=== PATIENT | female | born 1975 | race Caucasian/White ===

== ENCOUNTER → 2017-07-13 | Outpatient (CLI) | payer OTHER ==
[2016-04-06 11:12] VITALS: BP 134/67
[~2017-07-13] MED LIST: ACET500C PO; BENZ0.5T PO; BUPR75TA5 PO; CLON0.5T PO; FLUT16SP2 NS; LAMO200T2 PO; MECL25TA3 PO; METO50TA29 PO; MONT10TA6 PO; OLAN15TA3 PO; OLAN15TA9 PO; OLAN2.5T3 PO; PRAZ2CAP2 PO; PRAZ5CAP2 PO; SERT20OR PO; TEMA15CA6 PO; TOPI100T42 PO; TOPI100T8 PO; TRAM50TA PO; TRIA0.25 PO; VORT20TA PO; [UNRECOGNIZED DRUG - OTHER] IM
[2017-07-13 13:09] LABS: BASO # 0.1 x10^3/uL (0.0-0.2); BASO % 1 % (0-3); EOS # 0.3 x10^3/uL (0.0-0.7); EOS % 3 % (0-3); HEMATOCRIT 38.8 % (36.0-47.0); HEMOGLOBIN 12.7 g/dL (12.0-15.5); LYMPH # 3.8 x10^3/uL (1.0-4.8); LYMPH % 43 % (24-48); MEAN CORPUSCULAR HEMOGLOBIN 26 pg (25-35); MEAN CORPUSCULAR HGB CONC 33 g/dL (31-37); MEAN CORPUSCULAR VOLUME 80 fL (79-100); MONO # 0.8 x10^3/uL (0.0-1.1); MONO % 9 % (0-9); NEUT # 3.9 x10^3uL (1.8-7.7); NEUT % 44 % (31-73); PLATELET COUNT 298 x10^3/uL (140-400); RED BLOOD COUNT 4.84 x10^6/uL (3.50-5.40); RED CELL DISTRIBUTION WIDTH 15.8 % (11.5-14.5); WHITE BLOOD COUNT 8.8 x10^3/uL (4.0-11.0)
[2017-07-13 13:43] LABS: CREATININE 0.9 mg/dL (0.6-1.0); POTASSIUM 3.7 mmol/L (3.5-5.1)
== END | disposition home or self-care (01) ==
LOC: LAB 11:54
PROVIDERS: ATTEND Psychiatry & Neurology Neurology
DX: G93.2 Benign intracranial hypertension (principal)
CPT/HCPCS: 36415; 80051; 82565; 84450; 84460; 84520; 85025

== ENCOUNTER → 2017-08-18 | Outpatient (CLI) | payer OTHER ==
[2016-04-06 11:12] VITALS: BP 134/67
[~2017-08-18] MED LIST changes: +SERT100T PO; -SERT20OR PO
[2017-08-18 15:02] LABS: BASO # 0.1 x10^3/uL (0.0-0.2); BASO % 1 % (0-3); EOS # 0.3 x10^3/uL (0.0-0.7); EOS % 4 % (0-3); HEMATOCRIT 38.9 % (36.0-47.0); HEMOGLOBIN 12.6 g/dL (12.0-15.5); LYMPH % 37 % (24-48); MEAN CORPUSCULAR HEMOGLOBIN 26 pg (25-35); MEAN CORPUSCULAR HGB CONC 32 g/dL (31-37); MEAN CORPUSCULAR VOLUME 81 fL (79-100); MONO # 0.6 x10^3/uL (0.0-1.1); MONO % 7 % (0-9); NEUT % 51 % (31-73); PLATELET COUNT 288 x10^3/uL (140-400); WHITE BLOOD COUNT 7.9 x10^3/uL (4.0-11.0)
[2017-08-18 15:15] LABS: ALBUMIN 3.5 g/dL (3.4-5.0); CALCIUM 8.9 mg/dL (8.5-10.1); CREATININE 0.9 mg/dL (0.6-1.0); POTASSIUM 3.7 mmol/L (3.5-5.1); TOTAL BILIRUBIN 0.3 mg/dL (0.2-1.0); TOTAL PROTEIN 7.1 g/dL (6.4-8.2)
[2017-08-19 13:38] LABS: FREE T4 0.79 ng/dL (0.76-1.46)
[2017-08-19 13:39] LABS: THYROID STIM HORMONE (TSH) 1.887 uIU/mL (0.358-3.740)
== END | disposition home or self-care (01) ==
LOC: LAB 13:14
PROVIDERS: ATTEND Psychiatry & Neurology Child & Adolescent Psychiatry
DX: Z79.899 Other long term (current) drug therapy (principal)
CPT/HCPCS: 36415; 80053; 80061; 82306; 84439; 84443; 84480; 85025

== ENCOUNTER → 2017-10-26 | Outpatient (CLI) | payer OTHER ==
[2016-04-06 11:12] VITALS: BP 134/67
[~2017-10-26] MED LIST changes: -BENZ0.5T PO; +BENZ0.5T32 PO; +IOHEXOL 300 MG/ML 75 ML VIAL. IV ONE
--- NOTE | 2017-10-26 14:23 | RAD ---
Examination: CT chest with IV contrast HISTORY: History of cough for 6 weeks COMPARISON: None available TECHNIQUE: Axial CT images of the chest were performed with IV contrast. Coronal and sagittal reformats are performed. Exposure: One or more of the following individualized dose reduction techniques were utilized for this examination: 1. Automated exposure control 2. Adjustment of the mA and/or kV according to patient size 3. Use of iterative reconstruction technique FINDINGS: The visualized thyroid gland demonstrates a tiny 4 mm hypodensity in the right lobe of the thyroid gland. The central airways are patent. The heart size grossly appears unremarkable. No radiologically significant mediastinal lymphadenopathy identified. The lungs are clear. There is diffuse decreased attenuation noted throughout the liver likely hepatic steatosis. The visualized adrenals grossly appears unremarkable. Without evidence of lytic bony destructive lesion. IMPRESSION: 1. The lungs are clear. 2. Hepatic steatosis. 3. 4 mm thyroid nodule. Electronically signed by: Santosh Watters MD (10/26/2017 2:19 PM) [id number]
== END | disposition home or self-care (01) ==
LOC: CT 11:45
PROVIDERS: ATTEND Physician Assistant
DX: K76.0 Fatty (change of) liver, not elsewhere classified (principal); E04.1 Nontoxic single thyroid nodule; I10 Essential (primary) hypertension; Z87.891 Personal history of nicotine dependence
CPT/HCPCS: 71260; Q9967

== ENCOUNTER 2017-11-01 13:58 | Observation (INO) | payer OTHER ==
[~2017-11-01] VITALS: Ht 157.5 cm; Wt 96.2 kg
[~2017-11-01 13:58] MED LIST changes: -IOHEXOL 300 MG/ML 75 ML VIAL. IV ONE
[2017-11-01 14:14] VITALS: BP 126/75
[2017-11-01 15:10] LABS: ALBUMIN 3.6 g/dL (3.4-5.0); CALCIUM 8.5 mg/dL (8.5-10.1); CREATININE 0.9 mg/dL (0.6-1.0); POTASSIUM 3.8 mmol/L (3.5-5.1); TOTAL BILIRUBIN 0.4 mg/dL (0.2-1.0); TOTAL PROTEIN 7.3 g/dL (6.4-8.2)
[2017-11-01 15:22] LABS: BASO # 0.1 x10^3/uL (0.0-0.2); BASO % 1 % (0-3); EOS # 0.2 x10^3/uL (0.0-0.7); EOS % 2 % (0-3); HEMATOCRIT 36.8 % (36.0-47.0); LYMPH # 2.7 x10^3/uL (1.0-4.8); LYMPH % 30 % (24-48); MEAN CORPUSCULAR HEMOGLOBIN 26 pg (25-35); MEAN CORPUSCULAR HGB CONC 33 g/dL (31-37); MEAN CORPUSCULAR VOLUME 80 fL (79-100); MONO # 0.6 x10^3/uL (0.0-1.1); MONO % 6 % (0-9); NEUT # 5.6 x10^3uL (1.8-7.7); NEUT % 61 % (31-73); PLATELET COUNT 303 x10^3/uL (140-400); RED BLOOD COUNT 4.62 x10^6/uL (3.50-5.40); WHITE BLOOD COUNT 9.2 x10^3/uL (4.0-11.0)
[2017-11-01] MEDS ORDERED: ALBU8.5H8 INH (16:40)
[2017-11-01] MEDS ORDERED: ATOR40TA59 PO (16:40)
[2017-11-01] MEDS ORDERED: BREX1TAB PO (16:40)
[2017-11-01] MEDS ORDERED: IPRA3AMP NEB (16:40)
[2017-11-01] MEDS ORDERED: IBUP-577 PO (16:40)
[2017-11-01] MEDS ORDERED: TOPI100T8 PO (16:40)
[2017-11-01] MEDS ORDERED: FLUT1DIS3 INH (16:40)
--- NOTE | 2017-11-01 16:47 | PDOC2 ---
CONSULT Date of Admission DATE: 11/01/17 TIME: 16:44 Reason for Consult: left bundle branch block History of Present Illness Ms Renee is a 42 year old female who presented to her primary care providers office for follow up on a CT chest done for chronic cough. She reports dry, non productive cough for about 6 months. She reports dyspnea on exertion that has been progressive over that time. she denies congestive symptoms such as orthopnea or PND. She was noted to have a left bundle branch block on EKG that was new so was sent to hospital for evaluation. She reports chest discomfort that she describes as burning which occurs with exertion such as walking up a flight of steps and resolves with rest. She reports occasional palpitations but denies lightheadedness, or syncope. She reports some mild edema and has not been compliant with her Diamox due to incontinence issues. Past Medical History bipolar disorder, depression,SI/SA, pseudotumor cerebri, asthma, seasonal / environmental allergies Past Surgical History hiatal hernia repair as a child Family History CAD in Mom and Dad Social History quit smoking 4 years ago Current Medications Active Scripts Active Reported Topiramate 100 Mg Tablet 2 Tab PO HS Advair 250-50 Diskus (Fluticasone/Salmeterol) 1 Each Disk.w.dev 1 Puff INH BID Duoneb 0.5-3(2.5) Mg/3 Ml (Albuterol/Ipratropium) 3 Ml Ampul.neb 3 Ml NEB Q6HRS Proair Hfa Inhaler (Albuterol Sulfate) 8.5 Gm Hfa.aer.ad 1 Puff INH PRN PRN Atorvastatin Calcium 40 Mg Tablet 40 Mg PO HS Ibu (Ibuprofen) 800 Mg Tablet 800 Mg PO BID Rexulti (Brexpiprazole) 1 Mg Tablet 1 Mg PO DAILY Topiramate 100 Mg Tablet 1 Tab PO DAILY Trintellix (Vortioxetine Hydrobromide) 20 Mg Tablet 20 Mg PO DAILY Lamotrigine 200 Mg Tablet 1 Tab PO DAILY Metoprolol Succinate ( Xl ) (Metoprolol Succinate) 50 Mg Tab.er.24h 1 Tab PO DAILY Halcion (Triazolam) 0.25 Mg Tablet 1 Tab PO QHS PRN Flonase (Fluticasone Propionate) 16 Gm [place].susp 1 [place] NS BID Singulair Tablet (Montelukast Sodium) 10 Mg Tablet 10 Mg PO HS Allergies: Coded Allergies: allopurinol (Verified Allergy, Mild, 04/17/14) amoxicillin (Verified Allergy, Mild, 04/17/14) clavulanic acid (Verified Allergy, Mild, 04/17/14) Review of System as per HPI or negative General: Alert, Oriented X3, Cooperative, No acute distress HEENT: Atraumatic, EOMI, Mucous membr. moist/pink Lungs: Other (mildly decreased right base otherwise clear) Heart: Regular rate, Normal S1, Normal S2, Other (no murmurs, no gallops, clicks or rubs) Abdomen: Normal bowel sounds, Soft, No tenderness Extremities: No cyanosis, Normal pulses, Other (trace edema) Neuro: Normal speech, Strength at 5/5 X4 ext Psych/Mental Status: Mental status NL, Mood NL VITALS Vital Signs Date Time Temp Pulse Resp B/P (MAP) Pulse Ox O2 Delivery O2 Flow Rate FiO2 11/01/17 14:14 98.0 95 18 126/75 (92) 96 Room Air Labs Laboratory Tests Test 11/01/17 14:40 White Blood Count 9.2 x10^3/uL (4.0-11.0) Red Blood Count 4.62 x10^6/uL (3.50-5.40) Hemoglobin 12.0 g/dL (12.0-15.5) Hematocrit 36.8 % (36.0-47.0) Mean Corpuscular Volume 80 fL (79-100) Mean Corpuscular Hemoglobin 26 pg (25-35) Mean Corpuscular Hemoglobin Concent 33 g/dL (31-37) Red Cell Distribution Width 15.0 % (11.5-14.5) Platelet Count 303 x10^3/uL (140-400) Neutrophils (%) (Auto) 61 % (31-73) Lymphocytes (%) (Auto) 30 % (24-48) Monocytes (%) (Auto) 6 % (0-9) Eosinophils (%) (Auto) 2 % (0-3) Basophils (%) (Auto) 1 % (0-3) Neutrophils # (Auto) 5.6 x10^3uL (1.8-7.7) Lymphocytes # (Auto) 2.7 x10^3/uL (1.0-4.8) Monocytes # (Auto) 0.6 x10^3/uL (0.0-1.1) Eosinophils # (Auto) 0.2 x10^3/uL (0.0-0.7) Basophils # (Auto) 0.1 x10^3/uL (0.0-0.2) Sodium Level 140 mmol/L (136-145) Potassium Level 3.8 mmol/L (3.5-5.1) Chloride Level 107 mmol/L (98-107) Carbon Dioxide Level 23 mmol/L (21-32) Anion Gap 10 (6-14) Blood Urea Nitrogen 11 mg/dL (7-20) Creatinine 0.9 mg/dL (0.6-1.0) Estimated GFR (Cockcroft-Gault) 69.0 BUN/Creatinine Ratio 12 (6-20) Glucose Level 109 mg/dL (70-99) Calcium Level 8.5 mg/dL (8.5-10.1) Total Bilirubin 0.4 mg/dL (0.2-1.0) Aspartate Amino Transf (AST/SGOT) 30 U/L (15-37) Alanine Aminotransferase (ALT/SGPT) 45 U/L (14-59) Alkaline Phosphatase 127 U/L (46-116) Troponin I Quantitative < 0.017 ng/mL (0-0.055) Total Protein 7.3 g/dL (6.4-8.2) Albumin 3.6 g/dL (3.4-5.0) Albumin/Globulin Ratio 1.0 (1.0-1.7) Images CXR - pending EKG - pending Assessment/Plan 1. Chest pain - BBB on EKG which is new. Initial CE are negative. Will check serial enzymes and plan for echo and MPI tomorrow if they remain negative. 2. Dyspnea on exertion - CXR pending 3. chronic dry cough - await cxr. consider addition of PPI. DEMAR AMANDA COARSE WIRE DRAWER Nov 01, 2017 16:47
[2017-11-01 16:48] VITALS: BP 112/67
--- NOTE | 2017-11-01 16:49 | NUR ---
The patient, ORALIA HARTMAN, 42 y/o, F admitted by DWIGHT CARTER MD, was given written information regarding hospital policies, unit procedures and contact persons. Patient admitted to room [address] Carter's office and arrived at approx. 1405 via ambulation. Patient's parents and children with her on admission. Valuables were checked and left in room with patient. Vital signs assessed and 20g IV placed to right AC and labs drawn. Patient assessed and oriented to the room. [facility] notified of consult and return call received from ESTEE Denny. Denisha is here to see patient at this time.
--- NOTE | 2017-11-01 16:53 | RAD ---
Chest radiograph 11/01/2017 4:48 PM INDICATION: Chest pain COMPARISON: Chest July 21, 2006 TECHNIQUE: Frontal and lateral views of the chest are provided. FINDINGS: The cardiomediastinal silhouette is within normal limits. There are no pleural effusions. There is no pulmonary vascular congestion. There is no pneumothorax. The lungs are clear. No significant osseous abnormality is identified. IMPRESSION: No acute cardiopulmonary process. Electronically signed by: Nathalie Briones MD (11/01/2017 4:49 PM) [facility]
--- NOTE | 2017-11-01 17:09 | EKG ---
[address] [address] Test Date: 2017-11-01 Test Time: 17:00:37 Pat Name: ORALIA HARTMAN Department: Room: 120 A Gender: F Oxygen Equipment Preparer: SARATH : 1975 Requested By: DWIGHT CARTER Order Number: [id number] Reading MD: Measurements Intervals Gap Rate: 96 P: 56 MN: 162 QRS: -4 QRSD: 148 T: 97 QT: 378 QTc: 485 Interpretive Statements SINUS RHYTHM LEFTWARD AXIS LOW LIMB LEAD VOLTAGE NON SPECIFIC INTRAVENTRICULAR BLOCK QRS(T) CONTOUR ABNORMALITY CONSIDER ANTEROSEPTAL MYOCARDIAL DAMAGE ABNORMAL ECG RI6.01 No previous ECG available for comparison
[2017-11-01] MEDS ORDERED: ALBUTEROL SULFATE 8GM INHALER. INH PRN (18:15)
[2017-11-01 18:27] LABS: BILIRUBIN,URINE NEG (NEG); CLARITY,URINE CLEAR; COLOR,URINE STRAW; GLUCOSE,URINE NEG (NEG); NITRITE,URINE NEG (NEG); RBC,URINE 0 /HPF (0-2); UROBILINOGEN,URINE 0.2 mg/dL (0.2 mg/dL)
[2017-11-01 18:28] LABS: BACTERIA,URINE 0 /HPF (0-FEW); SQUAMOUS EPITHELIAL CELL,UR OCC /LPF; WBC,URINE OCC /HPF (0-4)
[2017-11-01 19:18] VITALS: BP 109/78
[2017-11-01] MEDS ORDERED: NON FORMULARY ITEM (Fluticasone/Salmeterol (Advair 250-50 Diskus) 1 PUFF) INH SCH (21:00)
[2017-11-01] MEDS: ATORVASTATIN CALCIUM 20 MG TABLET PO SCH (21:11)
[2017-11-01] MEDS: BUDESONIDE 0.5 MG/2 ML NEBU NEB SCH ×2 (21:11→21:35)
[2017-11-01] MEDS: ZOLPIDEM 5 MG TABLET. PO PRN ×2 (21:12→23:38)
[2017-11-01] MEDS: MONTELUKAST 10 MG TABLET. PO SCH (21:12)
[2017-11-01] MEDS: IBUPROFEN 800 MG TABLET. PO SCH (21:12)
[2017-11-01] MEDS: TOPIRAMATE 100 MG TABLET. PO SCH (21:12)
[2017-11-01] MEDS: IPRATRPIUM/ALBUTEROL 0.5/2.5MG 3 ML NEBU. NEB SCH (21:35)
[2017-11-01 23:21] VITALS: BP 122/80
--- NOTE | 2017-11-02 02:00 | NUR ---
Report given to YAMILE Jay.
[2017-11-02] MEDS: IPRATRPIUM/ALBUTEROL 0.5/2.5MG 3 ML NEBU. NEB SCH ×4 (05:33→20:37)
[2017-11-02 05:58] VITALS: BP 135/72
[2017-11-02] MEDS ORDERED: TRIAZOLAM 0.25 MG PO PRN (08:30)
[2017-11-02] MEDS ORDERED: TOPIRAMATE PO SCH (09:00)
[2017-11-02] MEDS: FLUTICASONE 50MCG/NASAL SPRAY 16GM BOTTLE. NS SCH ×2 (09:20→21:05)
[2017-11-02] MEDS: IBUPROFEN 800 MG TABLET. PO SCH (09:22)
[2017-11-02] MEDS: lamoTRIgine 100 MG TABLET. PO SCH (09:22)
[2017-11-02] MEDS: TOPIRAMATE 100 MG TABLET. PO SCH ×2 (09:25→21:06)
[2017-11-02] MEDS: BUDESONIDE 0.5 MG/2 ML NEBU NEB SCH (09:42)
[2017-11-02 11:00] VITALS: BP 120/80
[2017-11-02] MEDS ORDERED: REGADENOSON 0.4 MG/5 ML DISP.SYRIN. IV ONE (11:15)
[2017-11-02] MEDS: METOPROLOL SUCC 24HR ER 50 MG TAB.ER.24H. PO SCH (13:21)
[2017-11-02 15:00] VITALS: BP 109/71
--- NOTE | 2017-11-02 15:03 | RAD ---
MR#: [id number] Date of Study: 11/02/2017 Ordering Physician: DEMAR AMANDA, Referring Physician: ABI RASHID Tech: RT Charlee Flores) (N) APPROVED REPORT Test Type: Pharmacological Stress Nurse/Tech: RT Charlee Flores) (N) Test Indications: chest pain and dyspnea on exertion Cardiac History: family history mon and dad CAD Medications: see ehr Medical History: see ehr Resting Heart Rate: 84 bpm Resting Blood Pressure: 137/65mmHg Pretest Chest Pain: None Nurse/Tech Notes Consent: The procedure was explained to the patient in lay terms. Informed consent was witnessed. Samuel eout was entered into Powered. History and Stress Test performed by RT Charlee Flores) (N) Pharm. Details Pharmacologic stress testing was performed using 0.4mg per 5ml of regadenoson given intravenously ove r 7-10 seconds. Stress Symptoms short of breath and chest discomfort POST EXERCISE Reason for Termination: Infusion complete Max HR: 109 bpm Max Blood Pressure: 130/55mmHg INTERPRETATION Stress EKG Conclusion: Baseline EKG showed sinus rhythm with left bundle branch block. Nondiagnostic changes at peak stress. No arrhythmias. Imaging Protocol IMAGE PROTOCOL: Stress Tc-99m/rest Tc-99m 2 days Rest: Stress: Viability: Radiopharm.Tc99m Sestamibi [id number] Duration 15min. Img Date 11/02/2017 Inj-Img [id number]. Stress Admin Site: IV - Right AntecubitalAdministrator: RT Charlee Flores)(N) STRESS DATA End Diast. Vol.107.0mlAv. Heart Rate91.0bpm LVEDV index BSA2.0mlCardiac Output0.1L/min End Syst. Vol.31.0mlCO Index BSA6.9L/min LVESV index BSA1.0mlMyocardial Exfa190.0g Eject. Usfdkfes54.0% Stress Rates Pk. Fill Rate3.47EDV/secLVtime Pk. Fill 160.01msec Pk. Empty Rate4.20ESV/secLVtime Pk. Zyftv332.58msec 1/3 Pk. Fill1.72EDV/sec Stress Scores Regional WT0.00Summed WT3.00 Regional WM0.00Summed WM1.00 LV Perfusion Stress scintigraphic images did not show any significant perfusion defects. Wall Motion Normal left ventricular systolic function with ejection fraction calculated at 71%. LV Perf. Quant 17 Seg. SSS1.00 Stress Defect Extent (% LAD)0.00Rest Defect Extent (% LAD)Rev. Defect Extent (% LAD)0.00 Stress Defect Extent (% LCX) 0.00Rest Defect Extent (% LCX)Rev. Defect Extent (% LCX)0.00 Stress Defect Extent (% RCA)0.00Rest Defect Extent (% RCA)Rev. Defect Extent (% RCA)0.00 Stress Defect Extent (% COLBY)0.00Rest Defect Extent (% COLBY)Rev. Defect Extent (% COLBY)0.00 Conclusion 1. Regadenoson cardioisotope stress test did not show any evidence of ischemia or infarct. 2. Normal left ventricular systolic function with ejection fraction calculated at 71%. 3. Low risk for cardiac events. Signed by : Emmanuel Matthews, Electronically Approved : 11/02/2017 15:02:45
[2017-11-02 20:31] VITALS: BP 102/65
[2017-11-02] MEDS: MONTELUKAST 10 MG TABLET. PO SCH (21:05)
[2017-11-02] MEDS: ATORVASTATIN CALCIUM 20 MG TABLET PO SCH (21:05)
--- NOTE | 2017-11-02 21:49 | PN ---
DATE: 11/02/2017 SUBJECTIVE: A 42-year-old female in with chest pain. The patient was seen by Cardiology. She had a nuclear medicine scan, results are still pending. At this time, she did have crushing substernal chest pain, on minimal exertion, we are awaiting results there. Otherwise, the patient notes she still has some difficulty in breathing and did have some wheezing noted. She is on breathing treatments for that purpose there. PHYSICAL EXAMINATION: VITAL SIGNS: Otherwise, the patient's blood pressure 110/70, respiratory rate 20, pulse 98, afebrile, good oxygen saturation. GENERAL: The patient alert and oriented x 3. Speech fluent. . NEUROLOGIC: Cranial nerves 2 through 12 grossly and neurologically intact. LUNGS: Did show some expiratory wheezes. IMPRESSION: Acute asthma, acute chest pain. PLAN: The patient will be admitted for further evaluation, continue workup on her asthma as well as her chest pain, and continue breathing treatment. She also has bronchospasm that will be handled as well. DWIGHT CARTER MD DR: NICOLE/sebas JOB#: [id number] / [id number]
[2017-11-02 23:15] VITALS: BP 117/79
[2017-11-03] MEDS: IPRATRPIUM/ALBUTEROL 0.5/2.5MG 3 ML NEBU. NEB SCH ×2 (05:34→11:36)
[2017-11-03] MEDS: FLUTICASONE 50MCG/NASAL SPRAY 16GM BOTTLE. NS SCH (08:53)
[2017-11-03 08:54] VITALS: BP 117/79
[2017-11-03] MEDS: lamoTRIgine 100 MG TABLET. PO SCH (08:54)
[2017-11-03] MEDS: TOPIRAMATE 100 MG TABLET. PO SCH (08:54)
[2017-11-03] MEDS: METOPROLOL SUCC 24HR ER 50 MG TAB.ER.24H. PO SCH (08:54)
--- NOTE | 2017-11-03 09:36 | PDOC ---
PROGRESS NOTES Assessment 1. Chest pain - VT ruled out. MPI normal. Echo WNL. Continue primary prevention and risk factor reduction. 2. Dyspnea on exertion - no heart failure. Normal LVEF by MPI. Echo pending. Likely secondary to exacerbation of asthma. As per PCP, consider PFTs. 3. chronic dry cough - consider addition of PPI. Mgmt per PCP 4. HLD - lipid panel pending, continue statin and adjust as indicated as outpatient. Subjective Doing well today, no further complaints of cp. breathing improved. no palpitations or lightheadedness. Objective Vital Signs Date Time Temp Pulse Resp B/P (MAP) Pulse Ox O2 Delivery O2 Flow Rate FiO2 11/03/17 08:54 90 117/79 11/03/17 05:35 98 Room Air 11/02/17 23:15 98.2 20 Intake and Output 11/03/17 07:00 Intake Total 400 ml Balance 400 ml Intake Oral 400 ml # Voids 5 Abdomen: Normal bowel sounds, Soft, No tenderness Heart: Regular rate, Normal S1, Normal S2 Extremities: No cyanosis, No edema, Normal pulses General: Alert, Oriented X3, Cooperative, moderate distress HEENT: Atraumatic, EOMI Lungs: Other (decreased bases, no crackles or wheezing) Neuro: Normal speech, Strength at 5/5 X4 ext Psych/Mental Status: Mental status NL, Mood NL Review of Relevant I have reviewed the following items margie (where applicable) has been applied. Labs Laboratory Tests Test 11/01/17 14:40 11/01/17 16:00 11/01/17 21:15 11/02/17 02:36 White Blood Count 9.2 x10^3/uL (4.0-11.0) Red Blood Count 4.62 x10^6/uL (3.50-5.40) Hemoglobin 12.0 g/dL (12.0-15.5) Hematocrit 36.8 % (36.0-47.0) Mean Corpuscular Volume 80 fL (79-100) Mean Corpuscular Hemoglobin 26 pg (25-35) Mean Corpuscular Hemoglobin Concent 33 g/dL (31-37) Red Cell Distribution Width 15.0 % (11.5-14.5) Platelet Count 303 x10^3/uL (140-400) Neutrophils (%) (Auto) 61 % (31-73) Lymphocytes (%) (Auto) 30 % (24-48) Monocytes (%) (Auto) 6 % (0-9) Eosinophils (%) (Auto) 2 % (0-3) Basophils (%) (Auto) 1 % (0-3) Neutrophils # (Auto) 5.6 x10^3uL (1.8-7.7) Lymphocytes # (Auto) 2.7 x10^3/uL (1.0-4.8) Monocytes # (Auto) 0.6 x10^3/uL (0.0-1.1) Eosinophils # (Auto) 0.2 x10^3/uL (0.0-0.7) Basophils # (Auto) 0.1 x10^3/uL (0.0-0.2) D-Dimer (Veda) < 0.19 mg/L (0.00-0.50) Sodium Level 140 mmol/L (136-145) Potassium Level 3.8 mmol/L (3.5-5.1) Chloride Level 107 mmol/L (98-107) Carbon Dioxide Level 23 mmol/L (21-32) Anion Gap 10 (6-14) Blood Urea Nitrogen 11 mg/dL (7-20) Creatinine 0.9 mg/dL (0.6-1.0) Estimated GFR (Cockcroft-Gault) 69.0 BUN/Creatinine Ratio 12 (6-20) Glucose Level 109 mg/dL (70-99) Calcium Level 8.5 mg/dL (8.5-10.1) Total Bilirubin 0.4 mg/dL (0.2-1.0) Aspartate Amino Transf (AST/SGOT) 30 U/L (15-37) Alanine Aminotransferase (ALT/SGPT) 45 U/L (14-59) Alkaline Phosphatase 127 U/L (46-116) Troponin I Quantitative < 0.017 ng/mL (0-0.055) < 0.017 ng/mL (0-0.055) < 0.017 ng/mL (0-0.055) Total Protein 7.3 g/dL (6.4-8.2) Albumin 3.6 g/dL (3.4-5.0) Albumin/Globulin Ratio 1.0 (1.0-1.7) Urine Collection Type Unknown Urine Color Straw Urine Clarity Clear Urine pH 5.5 Urine Specific [place] >=1.030 Urine Protein Neg (NEG-TRACE) Urine Glucose (UA) Neg mg/dL (NEG) Urine Ketones (Stick) Neg mg/dL (NEG) Urine Blood Neg (NEG) Urine Nitrite Neg (NEG) Urine Bilirubin Neg (NEG) Urine Urobilinogen Dipstick 0.2 mg/dL (0.2 mg/dL) Urine Leukocyte Esterase Neg (NEG) Urine RBC 0 /HPF (0-2) Urine WBC Occ /HPF (0-4) Urine Squamous Epithelial Cells Occ /LPF Urine Bacteria 0 /HPF (0-FEW) Urine Mucus Mod /LPF Medications Current Medications Albuterol Sulfate (Ventolin Hfa) 1 puff Q2HR PRN INH SHORTNESS OF BREATH; Start 11/01/17 at 18:15; Stop 11/01/17 at 18:17; Status DC Albuterol/ Ipratropium (Duoneb) 3 ml Q6HRS NEB Last administered on 11/03/17 05 :34; Start 11/02/17 at 00:00 Atorvastatin Calcium (Lipitor) 40 mg QHS PO Last administered on 11/02/17 21:05 ; Start 11/01/17 at 21:00 Non-Formulary Medication (Brexpiprazole (Rexulti)) 1 mg DAILY PO Last administered on 11/03/17 08:53; Start 11/02/17 at 09:00 Fluticasone Propionate (Flonase) 2 spray BID NS Last administered on 11/03/17at 08:53; Start 11/02/17 at 09:00 Non-Formulary Medication (Fluticasone/ Salmeterol (Advair 250-50 Diskus)) 1 puff BID INH ; Start 11/01/17 at 21:00; Stop 11/01/17 at 21:00; Status DC Ibuprofen (Motrin) 800 mg BID PO Last administered on 11/02/17 09:22; Start 11/01/17 at 21:00; Stop 11/02/17 at 11:13; Status DC Lamotrigine (LaMICtal) 200 mg DAILY PO Last administered on 11/03/17at 08:54; Start 11/02/17 at 09:00 Metoprolol Succinate (Toprol Xl) 50 mg DAILY PO Last administered on 11/03/17 08:54; Start 11/02/17 at 09:00 Montelukast Sodium (Singulair) 10 mg QHS PO Last administered on 11/02/17at 21:05 ; Start 11/01/17 at 21:00 Non-Formulary Medication (Topiramate ) 1 tab DAILY PO ; Start 11/02/17 at 09:00; Stop 11/02/17 at 09:00; Status DC Topiramate (Topamax) 200 mg QHS PO Last administered on 11/02/17at 21:06; Start 11/01/17 at 21:00 Zolpidem Tartrate (Ambien) 5 mg PRN QHS PRN PO INSOMNIA MR X1 WITHIN 2HRS Last administered on 11/01/17at 23:38; Start 11/01/17 at 18:30; Stop 11/02/17 at 08:28; Status DC Non-Formulary Medication (Vortioxetine Hydrobromide (Trintellix)) 20 mg DAILY PO Last administered on 11/03/17at 08:53; Start 11/02/17 at 09:00 Budesonide (Pulmicort) 0.5 mg RTBID NEB Last administered on 11/01/17 21:35; Start 11/01/17 at 20:00 Non-Formulary Medication 1 ea PRN QHS PRN PO INSOMNIA Last administered on 21:28; Start 11/02/17 at 08:30 Topiramate (Topamax) 100 mg DAILY PO Last administered on 11/03/17 08:54; Start 11/02/17 at 09:30 Regadenoson (Lexiscan) 0.4 mg 1X ONCE IV Last administered on 11/02/17at 13:29; Start 11/02/17 at 11:15; Stop 11/02/17 at 11:16; Status DC Active Scripts Active Reported Topiramate 100 Mg Tablet 2 Tab PO HS Advair 250-50 Diskus (Fluticasone/Salmeterol) 1 Each Disk.w.dev 1 Puff INH BID Duoneb 0.5-3(2.5) Mg/3 Ml (Albuterol/Ipratropium) 3 Ml Ampul.neb 3 Ml NEB Q6HRS Proair Hfa Inhaler (Albuterol Sulfate) 8.5 Gm Hfa.aer.ad 1 Puff INH PRN PRN Atorvastatin Calcium 40 Mg Tablet 40 Mg PO HS Ibu (Ibuprofen) 800 Mg Tablet 800 Mg PO BID Rexulti (Brexpiprazole) 1 Mg Tablet 1 Mg PO DAILY Topiramate 100 Mg Tablet 1 Tab PO DAILY Trintellix (Vortioxetine Hydrobromide) 20 Mg Tablet 20 Mg PO DAILY Lamotrigine 200 Mg Tablet 1 Tab PO DAILY Metoprolol Succinate ( Xl ) (Metoprolol Succinate) 50 Mg Tab.er.24h 1 Tab PO DAILY Halcion (Triazolam) 0.25 Mg Tablet 1 Tab PO QHS PRN Flonase (Fluticasone Propionate) 16 Gm [place].susp 1 [place] NS BID Singulair Tablet (Montelukast Sodium) 10 Mg Tablet 10 Mg PO HS Vitals/I & O Vital Sign - Last 24 Hours 11/02/17 11/02/17 11/02/17 11/02/17 11:00 13:21 14:58 15:00 Temp 98.1 98.2 Pulse 92 73 98 Resp 20 20 B/P (MAP) 120/80 (93) 118/87 109/71 (84) Pulse Ox 98 97 96 O2 Delivery Room Air Room Air Room Air 11/02/17 11/02/17 11/02/17 11/02/17 20:00 20:31 20:35 23:15 Temp 98.1 98.2 Pulse 96 100 Resp 20 20 B/P (MAP) 102/65 (77) 117/79 (92) Pulse Ox 96 95 97 O2 Delivery Room Air Room Air Room Air Room Air 11/03/17 11/03/17 05:35 08:54 Pulse 90 B/P (MAP) 117/79 Pulse Ox 98 O2 Delivery Room Air Intake and Output 11/02/17 11/02/17 11/03/17 15:00 23:00 07:00 Intake Total 0 ml 400 ml Balance 0 ml 400 ml DEMAR AMANDA APRN Nov 03, 2017 09:36
--- NOTE | 2017-11-03 09:57 | CARD ---
MR#: [id number] Date of Study: 11/02/2017 Ordering Physician: DWIGHT CARTER, Referring Physician: DWIGHT CARTER, Tech: NADIRA Woods APPROVED REPORT EXAM: Two-dimensional and M-mode echocardiogram with Doppler and color Doppler. Other Information Quality : Fair INDICATION Abnormal ECG Dyspnea Chest Pain 2D DIMENSIONS Left Atrium(2D)3.0 (1.6-4.0cm)IVSd1.2 (0.7-1.1cm) Aortic Root(2D)2.6 (2.0-3.7cm)LVDd4.4 (3.9-5.9cm) LVOT Diameter1.9 (1.8-2.4cm)PWd1.1 (0.7-1.1cm) LVDs3.2 (2.5-4.0cm)FS (%) 27.2 % SV46.9 mlLVEF(%)53.2 (>50%) Mitral Valve MV E Xsqrybcu627.7cm/sMV A Igjdcfmo14.1cm/s E/A Ratio1.2 Tricuspid Valve TR P. Poerssov655ks/sRAP [id number] TR Peak Gr.[id number] LEFT VENTRICLE The left ventricle is normal size. There is borderline concentric left ventricular hypertrophy. The l eft ventricular systolic function is normal. The Ejection Fraction is 55-60%. There is normal LV segm ental wall motion. RIGHT VENTRICLE The right ventricle is normal size. There is normal right ventricular wall thickness. The right ventr icular systolic function is normal. ATRIA The left atrium size is normal. The right atrium size is normal. The interatrial septum is intact wit h no evidence for an atrial septal defect or patent foramen ovale as noted on 2-D or Doppler imaging. AORTIC VALVE The aortic valve is not well visualized. Not able rule out a possible bicuspid aortic valve. Doppler and Color Flow revealed trace aortic regurgitation. There is no significant aortic valvular stenosis. MITRAL VALVE There is no mitral valve stenosis. Doppler and Color-flow revealed trace mitral regurgitation. TRICUSPID VALVE Doppler and Color Flow revealed trace tricuspid regurgitation. There is no tricuspid valve stenosis. PULMONIC VALVE Doppler and Color Flow revealed no pulmonic valvular regurgitation. There is no pulmonic valvular [place] nosis. GREAT VESSELS The aortic root is normal in size. The IVC is normal in size and collapses >50% with inspiration. PERICARDIAL EFFUSION There is no pleural effusion. There is no evidence of significant pericardial effusion. Critical Notification Critical Value: No <Conclusion> The left ventricular systolic function is normal. The Ejection Fraction is 55-60%. There is normal LV segmental wall motion. Trace mitral regurgitation. Trace tricuspid regurgitation. There is no evidence of significant pericardial effusion. Signed by : Emmanuel Matthews, Electronically Approved : 11/03/2017 09:56:10
[2017-11-03] MEDS ORDERED: ASPIRIN ENTERIC COATED 81 MG TABLET.DR. PO SCH (10:00)
[2017-11-03] MEDS: BUDESONIDE 0.5 MG/2 ML NEBU NEB SCH (11:36)
--- NOTE | 2017-11-03 12:13 | NUR ---
Discharge Note: ORALIA HARTMAN [address] Discharge instructions and discharge home medications reviewed with Patient and a copy given. All questions have been answered and understanding verbalized. The following instructions and handouts were given: education regarding chest pain and cardiac stress test; discharge instructions Discontinued lines and drains: Peripheral IV intact. Patient discharged to Home or Self Care with[facility] Ambulated
== END 2017-11-03 12:13 | disposition home or self-care (01) ==
LOC: INTOOBSV 13:58 → 1 SOUTH 13:58
PROVIDERS: ADMIT Family Medicine; ATTEND Family Medicine
DX: I44.7 Left bundle-branch block, unspecified (principal); R06.02 Shortness of breath; R07.89 Other chest pain; R94.31 Abnormal electrocardiogram [ECG] [EKG]; J45.901 Unspecified asthma with (acute) exacerbation; F31.9 Bipolar disorder, unspecified; F41.9 Anxiety disorder, unspecified; G47.00 Insomnia, unspecified; G43.909 Migraine, unspecified, not intractable, without status migrainosus; Z82.49 Family history of ischemic heart disease and other diseases of the circulatory system; Z87.891 Personal history of nicotine dependence
CPT/HCPCS: 36415; 71046; 78452; 80053; 80061; 81001; 84484; 85025; 85379; 87086; 93005; 93017; 93306; 94640; A9500; G0378; G0379; J2785; J7620; J7626; 96374; 96375

== ENCOUNTER → 2017-11-16 | Outpatient (CLI) | payer OTHER ==
[2017-11-03 08:54] VITALS: BP 117/79
[~2017-11-16] MED LIST changes: +ALBU8.5H8 INH; +ATOR40TA59 PO; +BREX1TAB PO; +FLUT1DIS3 INH; +IBUP-577 PO; +IPRA3AMP NEB
--- NOTE | 2017-11-16 15:46 | RAD ---
THYROID ULTRASOUND History: Right thyroid nodule on CT Comparison: October 26, [address] Findings: Multiple sonographic images of the thyroid gland are submitted. Right lobe measured 1.6 x 1.4 x 5.1 cm. Left lobe measured 4.4 x 1.7 x 1.3 cm. There is a solid-appearing fairly homogeneous nodule of the mid right gland about 1 x 0.7 x 1.2 cm in size, some internal vascularity on color Doppler imaging. There is a larger solid slightly heterogeneous nodule of the inferior right gland about 1.5 x 0.8 x 0.7 mm in size, dedicated color Doppler images of this area not submitted. There is also tiny nodule of the superior left gland about 0.2 cm greatest dimension. Isthmus measured 0.3 cm in thickness. Impression: 1. There are thyroid nodules bilaterally, dominant nodules on the right, largest nodule on the right about 1.5 cm. Electronically signed by: Aubrey Villalobos MD (11/16/2017 3:43 PM) [facility]
== END | disposition home or self-care (01) ==
LOC: US 14:44
PROVIDERS: ATTEND Family Medicine
DX: E04.2 Nontoxic multinodular goiter (principal); I10 Essential (primary) hypertension
CPT/HCPCS: 76536

== ENCOUNTER → 2018-03-23 | Outpatient (CLI) | payer OTHER ==
[~2018-03-23] MED LIST changes: -IPRA3AMP NEB; +IPRA3AMP29 NEB
[2018-03-23 11:14] LABS: BASO # 0.1 x10^3/uL (0.0-0.2); BASO % 1 % (0-3); EOS # 0.4 x10^3/uL (0.0-0.7); EOS % 5 % (0-3); HEMOGLOBIN 12.5 g/dL (12.0-15.5); LYMPH # 3.3 x10^3/uL (1.0-4.8); LYMPH % 43 % (24-48); MEAN CORPUSCULAR HEMOGLOBIN 25 pg (25-35); MEAN CORPUSCULAR HGB CONC 32 g/dL (31-37); MEAN CORPUSCULAR VOLUME 77 fL (79-100); MONO # 0.7 x10^3/uL (0.0-1.1); MONO % 9 % (0-9); NEUT # 3.4 x10^3uL (1.8-7.7); NEUT % 43 % (31-73); PLATELET COUNT 302 x10^3/uL (140-400); RED BLOOD COUNT 5.08 x10^6/uL (3.50-5.40); RED CELL DISTRIBUTION WIDTH 16.6 % (11.5-14.5); WHITE BLOOD COUNT 7.8 x10^3/uL (4.0-11.0)
[2018-03-23 11:22] LABS: ALBUMIN 3.7 g/dL (3.4-5.0); CALCIUM 8.8 mg/dL (8.5-10.1); GFR 61.1; POTASSIUM 3.9 mmol/L (3.5-5.1); TOTAL BILIRUBIN 0.4 mg/dL (0.2-1.0); TOTAL PROTEIN 7.3 g/dL (6.4-8.2)
== END | disposition home or self-care (01) ==
LOC: LAB 10:07
PROVIDERS: ATTEND Psychiatry & Neurology Neurology
DX: G93.2 Benign intracranial hypertension (principal)
CPT/HCPCS: 36415; 80053; 84443; 85025

== ENCOUNTER → 2018-04-17 | Outpatient (CLI) | payer OTHER ==
--- NOTE | 2018-04-25 09:06 | RAD ---
DATE: 04/17/2018 EXAM: DIGITAL SCREEN BILAT W/CAD HISTORY: Routine screening COMPARISON: Baseline study This study was interpreted with the benefit of Computerized Aided Detection (CAD). Breast Density: SCATTERED The breast parenchyma shows scattered fibroglandular densities. Breast parenchyma level B. FINDINGS: No suspicious breast densities or microcalcifications are seen. Benign-appearing lymph nodes are present in the axillary regions. IMPRESSION: There is no mammographic evidence of malignancy in either breast. BI-RADS CATEGORY: 1 NEGATIVE RECOMMENDED FOLLOW-UP: 12M 12 MONTH FOLLOW-UP PQRS compliance statement: Patient information was entered into a reminder system with a target due date for the next mammogram. Mammography is a sensitive method for finding small breast cancers, but it does not detect them all and is not a substitute for careful clinical examination. A negative mammogram does not negate a clinically suspicious finding and should not result in delay in biopsying a clinically suspicious abnormality. "Our facility is accredited by the [employer] Mammography Program."
== END | disposition home or self-care (01) ==
LOC: MAMMO 14:20
PROVIDERS: ATTEND Physician Assistant
DX: Z12.31 Encounter for screening mammogram for malignant neoplasm of breast (principal)
CPT/HCPCS: 77067

== ENCOUNTER → 2018-10-18 | Outpatient (CLI) | payer OTHER ==
[~2018-10-18] MED LIST changes: +ALBU2.5V8 INH; -ALBU8.5H8 INH
[2018-10-18 10:34] LABS: HEMATOCRIT 36.1 % (36.0-47.0); HEMOGLOBIN 11.5 g/dL (12.0-15.5); MEAN CORPUSCULAR HEMOGLOBIN 25 pg (25-35); MEAN CORPUSCULAR HGB CONC 32 g/dL (31-37); MEAN CORPUSCULAR VOLUME 78 fL (79-100); RED BLOOD COUNT 4.62 x10^6/uL (3.50-5.40); RED CELL DISTRIBUTION WIDTH 15.8 % (11.5-14.5)
[2018-10-18 10:35] LABS: BASO # 0.1 x10^3/uL (0.0-0.2); BASO % 1 % (0-3); EOS # 0.3 x10^3/uL (0.0-0.7); EOS % 3 % (0-3); LYMPH # 2.9 x10^3/uL (1.0-4.8); LYMPH % 37 % (24-48); MONO # 0.6 x10^3/uL (0.0-1.1); MONO % 7 % (0-9); NEUT # 4.2 x10^3uL (1.8-7.7); NEUT % 52 % (31-73); PLATELET COUNT 313 x10^3/uL (140-400)
[2018-10-18 10:37] LABS: ALBUMIN 3.6 g/dL (3.4-5.0); CREATININE 0.9 mg/dL (0.6-1.0); GFR 68.7; TOTAL BILIRUBIN 0.2 mg/dL (0.2-1.0); TOTAL PROTEIN 7.3 g/dL (6.4-8.2)
[2018-10-18 10:38] LABS: POTASSIUM 3.6 mmol/L (3.5-5.1)
== END | disposition home or self-care (01) ==
LOC: LAB 08:52
PROVIDERS: ATTEND Psychiatry & Neurology Neurology
DX: G93.2 Benign intracranial hypertension (principal)
CPT/HCPCS: 36415; 80053; 84443; 85025

== ENCOUNTER → 2018-10-18 | Outpatient (CLI) | payer OTHER ==
[2018-10-18 10:32] LABS: BASO # 0.1 x10^3/uL (0.0-0.2); BASO % 1 % (0-3); EOS # 0.3 x10^3/uL (0.0-0.7); EOS % 3 % (0-3); HEMATOCRIT 36.1 % (36.0-47.0); HEMOGLOBIN 11.5 g/dL (12.0-15.5); LYMPH # 2.9 x10^3/uL (1.0-4.8); LYMPH % 37 % (24-48); MEAN CORPUSCULAR HEMOGLOBIN 25 pg (25-35); MEAN CORPUSCULAR HGB CONC 32 g/dL (31-37); MEAN CORPUSCULAR VOLUME 78 fL (79-100); MONO # 0.6 x10^3/uL (0.0-1.1); MONO % 7 % (0-9); NEUT # 4.2 x10^3uL (1.8-7.7); NEUT % 52 % (31-73); PLATELET COUNT 313 x10^3/uL (140-400); RED BLOOD COUNT 4.62 x10^6/uL (3.50-5.40); RED CELL DISTRIBUTION WIDTH 15.8 % (11.5-14.5)
[2018-10-18 10:36] LABS: ALBUMIN 3.6 g/dL (3.4-5.0); CREATININE 0.9 mg/dL (0.6-1.0); GFR 68.7; POTASSIUM 3.6 mmol/L (3.5-5.1); TOTAL BILIRUBIN 0.2 mg/dL (0.2-1.0); TOTAL PROTEIN 7.3 g/dL (6.4-8.2)
[2018-10-18 15:03] LABS: FREE T4 0.78 ng/dL (0.76-1.46); THYROID STIM HORMONE (TSH) 4.081 uIU/mL (0.358-3.740)
== END | disposition home or self-care (01) ==
LOC: LAB 08:59
PROVIDERS: ATTEND Physician Assistant
DX: Z79.899 Other long term (current) drug therapy (principal)
CPT/HCPCS: 36415; 80053; 80061; 84439; 84443; 84480; 85025

== ENCOUNTER → 2019-05-28 | Outpatient (CLI) | payer OTHER ==
[~2019-05-28] MED LIST changes: -ACET500C PO; +ACET500C5 PO; -LAMO200T2 PO; +LAMO200T6 PO; -MONT10TA6 PO; +MONT10TA80 PO
--- NOTE | 2019-05-29 16:05 | RAD ---
DATE: 05/28/2019 EXAM: DIGITAL SCREEN BILAT W/CAD HISTORY: Routine screening COMPARISON: 04/17/2018 This study was interpreted with the benefit of Computerized Aided Detection (CAD). Breast Density: HETERO The breast parenchyma is heterogenously dense, which could reduce sensitivity of mammography. Breast parenchyma level C. FINDINGS: No suspicious calcifications, masses, or distortion. IMPRESSION: Stable BI-RADS CATEGORY: 1 NEGATIVE RECOMMENDED FOLLOW-UP: 12M 12 MONTH FOLLOW-UP PQRS compliance statement: Patient information was entered into a reminder system with a target due date for the next mammogram. Mammography is a sensitive method for finding small breast cancers, but it does not detect them all and is not a substitute for careful clinical examination. A negative mammogram does not negate a clinically suspicious finding and should not result in delay in biopsying a clinically suspicious abnormality. "Our facility is accredited by the [employer] Mammography [employer]."
== END | disposition home or self-care (01) ==
LOC: MAMMO 13:10
PROVIDERS: ATTEND Physician Assistant
DX: Z12.31 Encounter for screening mammogram for malignant neoplasm of breast (principal)
CPT/HCPCS: 77067

== ENCOUNTER → 2019-07-27 | Outpatient (CLI) | payer OTHER ==
[~2019-07-27] MED LIST changes: +MECL-75 PO; -MECL25TA3 PO
[2019-07-27 09:58] LABS: BASO # 0.1 x10^3/uL (0.0-0.2); BASO % 1 % (0-3); EOS # 0.2 x10^3/uL (0.0-0.7); EOS % 2 % (0-3); HEMATOCRIT 33.4 % (36.0-47.0); HEMOGLOBIN 10.1 g/dL (12.0-15.5); LYMPH # 3.1 x10^3/uL (1.0-4.8); LYMPH % 37 % (24-48); MEAN CORPUSCULAR HEMOGLOBIN 22 pg (25-35); MEAN CORPUSCULAR HGB CONC 30 g/dL (31-37); MEAN CORPUSCULAR VOLUME 73 fL (79-100); MONO # 0.7 x10^3/uL (0.0-1.1); MONO % 8 % (0-9); NEUT # 4.3 x10^3uL (1.8-7.7); NEUT % 52 % (31-73); PLATELET COUNT 311 x10^3/uL (140-400); RED BLOOD COUNT 4.59 x10^6/uL (3.50-5.40); RED CELL DISTRIBUTION WIDTH 17.4 % (11.5-14.5); WHITE BLOOD COUNT 8.3 x10^3/uL (4.0-11.0)
[2019-07-27 10:21] LABS: ALBUMIN 3.5 g/dL (3.4-5.0); CALCIUM 8.6 mg/dL (8.5-10.1); GFR 60.5; POTASSIUM 3.5 mmol/L (3.5-5.1); TOTAL BILIRUBIN 0.2 mg/dL (0.2-1.0); TOTAL PROTEIN 6.9 g/dL (6.4-8.2)
[2019-07-27 11:06] LABS: ANISOCYTOSIS MOD; HYPOCHROMIA SLIGHT; MICROCYTOSIS SLIGHT; OVALOCYTES FEW; PLT ESTIMATE ADEQUATE (ADEQUATE); POLYCHROMASIA SLIGHT
== END | disposition home or self-care (01) ==
LOC: LAB 08:58
PROVIDERS: ATTEND Psychiatry & Neurology Neurology
DX: G93.2 Benign intracranial hypertension (principal)
CPT/HCPCS: 36415; 80053; 85025

== ENCOUNTER → 2020-04-30 | Outpatient (CLI) | payer OTHER ==
[2020-04-30 13:34] LABS: FECAL OB PT NEGATIVE (NEG)
== END ==
LOC: LAB 11:38
PROVIDERS: ATTEND Internal Medicine Cardiovascular Disease
DX: D64.9 Anemia, unspecified (principal)
CPT/HCPCS: 82274

== ENCOUNTER → 2020-05-29 | Outpatient (CLI) | payer OTHER ==
--- NOTE | 2020-05-29 15:05 | RAD ---
DATE: 05/29/2020 9:12 AM EXAM: DIGITAL SCREEN BILAT W/CAD HISTORY: Screening COMPARISON: 05/28/2019 Bilateral full field craniocaudal and mediolateral oblique images were obtained using digital technique. This study was interpreted with the benefit of Computerized Aided Detection (CAD). FINDINGS: Breast Density: SCATTERED The breast parenchyma shows scattered fibroglandular densities. Breast parenchyma level B No suspicious masses, microcalcifications or architectural distortion is present to suggest malignancy in either breast. The visualized axillae are unremarkable. IMPRESSION: No mammographic evidence of malignancy. BI-RADS CATEGORY: 1 NEGATIVE RECOMMENDED FOLLOW-UP: 12M 12 MONTH FOLLOW-UP Annual screening mammography is recommended, unless clinically indicated sooner based on symptoms or change in physical exam. PQRS compliance statement: Patient information was entered into a reminder system with a target due date for the next mammogram. Mammography is a sensitive method for finding small breast cancers, but it does not detect them all and is not a substitute for careful clinical examination. A negative mammogram does not negate a clinically suspicious finding and should not result in delay in biopsying a clinically suspicious abnormality. "Our facility is accredited by the [employer] Mammography [employer]."
== END ==
LOC: MAMMO 08:59
PROVIDERS: ATTEND Family Medicine
DX: Z12.31 Encounter for screening mammogram for malignant neoplasm of breast (principal)
CPT/HCPCS: 77067

== ENCOUNTER → 2020-09-19 | Outpatient (CLI) | payer MEDICARE, OTHER ==
[2020-09-19 09:49] LABS: CSF PROTEIN 52.4 mg/dL (15.0-45.0)
[2020-09-19 11:55] LABS: CSF CLARITY HAZY; CSF COLOR COLORLESS; CSF RBC COUNT 750; CSF WBC COUNT 3
--- NOTE | 2020-09-19 13:59 | RAD ---
PROCEDURE: Diagnostic Lumbar Puncture Under Fluoroscopic Guidance HISTORY: The patient is a 45 year old female who presented with head pressure/headaches and history of tumor behind the left eye. CONSENT: The risks, benefits, treatment options, potential complications, equipment, and personnel t o be involved were discussed (including the risks of radiation exposure, contrast and anesthesia admi nistration) with the patient. All questions were answered and consent was obtained. The patient indic ated willingness to proceed. GENERAL: Medication Reconciliation: The patient's medications and allergies were reviewed. The patient was placed Prone on the Fluoroscopy table. The lumbar soft tissues were then sterilely pr epped and draped. Time Out: A time out was performed immediately prior to procedure start with the nursing, anesthesia and interventional team, correctly identifying the name, medical record number, procedure, anatomy ( including marking of site and side), patient position, procedure consent form, relevant diagnostic an d radiology test results, antibiotic administration, safety precautions, and procedure-specific equip ment needs. Timeout Time and Procedure Start Time: 08:40 Anesthesia Type: Administration of local anesthesia. Local Anesthesia: 1% Lidocaine TECHNIQUE: Access Site: 22 gauge spinal needle from a Midline approach at the L5-S1 level. Procedure Details: Using sterile procedure, local anesthesia was introduced to the skin and subcutane ous tissues as outlined above. Under fluoroscopic guidance, the needle was carefully advanced into th e lumbar subarachnoid space resulting in free flow of CSF. - Diagnostic Volume: 12 mL of CSF was withdrawn and forwarded to the lab for analysis. - Opening Pressure: 18 cmH2O; Closing Pressure: 12 cmH2O - CSF Color: Clear - Estimated Blood Loss: None -No immediate complications were encountered. Patient transferred to radiology recovery room in st able condition and observed for approximately 30 minutes. Fluoroscopic Radiation Summary: Number of fluoroscopic images: 1 Fluoroscopy time: 0.8 minutes IMPRESSION: Successful diagnostic lumbar puncture. Electronically signed by: Roberto Lane DO (09/19/2020 1:57 PM) [id number]
[2020-09-29 10:07] LABS: VIRAL CULT FINAL No virus isolated. (.)
== END | disposition home or self-care (01) ==
LOC: RAD 08:22
PROVIDERS: ATTEND Nurse Practitioner Family
DX: G93.2 Benign intracranial hypertension (principal); G47.00 Insomnia, unspecified; E03.0 Congenital hypothyroidism with diffuse goiter; J45.909 Unspecified asthma, uncomplicated; I10 Essential (primary) hypertension; Z88.8 Allergy status to other drugs, medicaments and biological substances; Z88.6 Allergy status to analgesic agent; Z79.899 Other long term (current) drug therapy; F31.9 Bipolar disorder, unspecified; Z83.3 Family history of diabetes mellitus; Z80.8 Family history of malignant neoplasm of other organs or systems; Z88.1 Allergy status to other antibiotic agents
CPT/HCPCS: 36415; 62270; 62328; 82945; 84157; 87070; 87102; 87252; 89051

== ENCOUNTER → 2021-06-24 | Outpatient (CLI) | payer MEDICARE, OTHER ==
[~2021-06-24] MED LIST changes: +OLAN15TA15 PO; -OLAN15TA9 PO
--- NOTE | 2021-06-24 12:35 | RAD ---
BILATERAL DIGITAL SCREENING 2-D AND 3-D MAMMOGRAM INDICATION: Routine screening. COMPARISON: Prior studies including 1 at 05/29/2020. Interpretation was made using CAD. FINDINGS: Breast Density: B RIGHT BREAST: No suspicious masses, calcifications or areas of architectural distortion are seen. LEFT BREAST: No suspicious masses, calcifications or areas of architectural distortion are seen. IMPRESSION: 1. No imaging evidence of malignancy. ASSESSMENT: BI-RADS 1. Negative. RECOMMENDATION: Routine annual screening mammogram. The facility will notify the patient of the results via mail. Patient information will be entered int o the mammography reminder system with a target recall date for the next mammogram. A reminder letter will be generated by the facility. Electronically signed by: Contreras Daley Jr., MD (06/24/2021 12:33 PM) [id number]
== END ==
LOC: MAMMO 10:38
PROVIDERS: ATTEND Family Medicine
DX: Z12.31 Encounter for screening mammogram for malignant neoplasm of breast (principal)
CPT/HCPCS: 77063; 77067

== ENCOUNTER → 2021-06-24 | Outpatient (CLI) | payer MEDICARE, OTHER ==
[2021-06-24 12:02] LABS: BASO # 0.1 x10^3/uL (0.0-0.2); BASO % 1 % (0-3); EOS # 0.4 x10^3/uL (0.0-0.7); EOS % 5 % (0-3); HEMATOCRIT 43.5 % (36.0-47.0); HEMOGLOBIN 14.3 g/dL (12.0-15.5); LYMPH # 2.7 x10^3/uL (1.0-4.8); LYMPH % 28 % (24-48); MEAN CORPUSCULAR HEMOGLOBIN 28 pg (25-35); MEAN CORPUSCULAR HGB CONC 33 g/dL (31-37); MEAN CORPUSCULAR VOLUME 85 fL (79-100); MONO # 0.6 x10^3/uL (0.0-1.1); MONO % 7 % (0-9); NEUT # 5.6 x10^3uL (1.8-7.7); NEUT % 60 % (31-73); PLATELET COUNT 279 x10^3/uL (140-400); RED CELL DISTRIBUTION WIDTH 16.8 % (11.5-14.5); WHITE BLOOD COUNT 9.5 x10^3/uL (4.0-11.0)
[2021-06-24 12:53] LABS: ALBUMIN 3.6 g/dL (3.4-5.0); CALCIUM 8.6 mg/dL (8.5-10.1); CREATININE 0.7 mg/dL (0.6-1.0); GFR 90.5; POTASSIUM 3.9 mmol/L (3.5-5.1); TOTAL BILIRUBIN 0.3 mg/dL (0.2-1.0); TOTAL PROTEIN 7.2 g/dL (6.4-8.2)
[2021-06-24 20:21] LABS: CHOLESTEROL/HDL RATIO 5.3; FREE T4 0.86 ng/dL (0.76-1.46); THYROID STIM HORMONE (TSH) 0.723 uIU/mL (0.358-3.740)
[2021-06-25 03:09] LABS: HEMOGLOBIN A1C 5.8 % (4.8-5.6)
== END ==
LOC: LAB 10:44
PROVIDERS: ATTEND Physician Assistant
DX: Z79.899 Other long term (current) drug therapy (principal)
CPT/HCPCS: 36415; 80053; 80061; 83036; 84439; 84443; 84480; 85025